=== PATIENT | female | born 1950 | race Caucasian/White ===

== ENCOUNTER 2016-09-06 05:46 | Day surgery (SDC) | payer OTHER ==
[~2016-09-06] VITALS: Ht 167.6 cm; Wt 82.6 kg
[~2016-09-06 05:46] MED LIST: ASPIRIN81 M1 PO; CALTRATE 600600 MG PO; INCRUSE ELLI62.5 MCG IH; LIPITOR40 MG PO; MULTIVITAMIN1 EAC1 PO
[2016-09-06 06:37] VITALS: BP 131/78
[2016-09-06 06:39] LABS: HEMATOCRIT 40.8 % (36.0-46.0); MCH 29.4 PG (29.0-34.0); MCHC 32.8 G/DL (30.0-36.0); MCV 89.5 FL (83-99); MEAN PLAT.VOLUME 9.9 uM^3 (9.5-12.4); PLATELET COUNT 243 K/uL (156-360); RBC DIS.WIDTH-CV 13.4 % (11.8-14.6); RBC DIS.WIDTH-SD 43.5 % (39-53); RED BLOOD COUNT 4.56 M/uL (3.80-5.20); WHITE BLOOD COUNT 8.7 K/uL (4.1-10.2)
[2016-09-06 07:06] LABS: ANION GAP 7 MEQ/L (2-14); CHLORIDE 106 MEQ/L (99-109); SAMPLE HEMOLYSIS CHECK 0; SAMPLE ICTERIC CHECK 0; SAMPLE LIPEMIA CHECK 0; SODIUM 140 MEQ/L (136-147); TOTAL BILIRUBIN 0.8 MG/DL (0.0-1.0)
[2016-09-06 07:11] LABS: ALKALINE PHOSPHATASE 101 IU/L (3-129); GFR ESTIMATE (CALCULATED) > 59 mL/min/; GLUCOSE 120 mg/dL (70-99); UREA NITROGEN (BUN) 12 mg/dL (9-23)
[2016-09-06 09:18] VITALS: BP 120/64
[2016-09-06 10:07] VITALS: BP 98/65
== END 2016-09-06 10:09 | disposition home or self-care (01) ==
LOC: SDC 05:46
PROVIDERS: Ophthalmology
DX: H43.391 Other vitreous opacities, right eye (principal); H35.371 Puckering of macula, right eye; T85.9XXA Unspecified complication of internal prosthetic device, implant and graft, initial encounter; J44.9 Chronic obstructive pulmonary disease, unspecified; F17.200 Nicotine dependence, unspecified, uncomplicated; M19.90 Unspecified osteoarthritis, unspecified site; Z79.82 Long term (current) use of aspirin
CPT/HCPCS: 80053; 85027; J0690; J1100; J1120; J2795; J3300